=== PATIENT | male | born 1995 | race American Indian/Alaskan Native ===

== ENCOUNTER 2019-06-21 20:20 | Emergency (ER) | payer SELFPAY ==
--- NOTE | 2019-06-21 20:32 | Event Note ---
ED Screening Note Date of service: 06/21/19 Time: 20:29 ED Screening Note: 23 y o male presents with upper lip edema unsure of contact took 2 benadryl earlier this am but no relief This initial assessment/diagnostic orders/clinical plan/treatment(s) is/are subject to change based on patients health status, clinical progression and re- assessment by fellow clinical providers in the ED. Further treatment and workup at subsequent clinical providers discretion. Patient/guardian urged not to elope from the ED as their condition may be serious if not clinically assessed and managed. Initial orders include: allergic vs. abscess/cellulitis
[2019-06-21 22:02] LABS: Basophils % (Auto) 0.6 % (0.0-1.8); Eosinophils % (Auto) 0.9 % (0.0-4.3); Hematocrit 43.5 % (35.5-45.6); Hemoglobin 13.9 gm/dl (11.8-15.2); Lymphocytes % (Auto) 39.7 % (13.4-35.0); Mean Corpuscular HGB Conc 32 % (32-34); Mean Corpuscular Volume 73 fl (84-94); Monocytes # (Auto) 0.7 K/mm3 (0.0-0.8); Monocytes % (Auto) 13.4 % (0.0-7.3); Platelet Count 225 K/mm3 (140-440); Red Blood Count 5.98 M/mm3 (3.65-5.03); Red Cell Distribution Width 16.4 % (13.2-15.2)
[2019-06-21 22:23] LABS: BUN/Creatinine Ratio 8; Blood Urea Nitrogen 8 mg/dL (9-20); Calcium 9.1 mg/dL (8.4-10.2); Hemolysis Index 13
[2019-06-21] MEDS ORDERED: BACTRIM DS PO ONE (22:27)
--- NOTE | 2019-06-21 22:32 | Emergency Department Report ---
HPI - General Chief Complaint: Allergic Reaction Time Seen by Provider: 06/21/19 20:28 - HPI HPI: 23-year-old [place] male presents to the emergency department with 2 complaints. First, the patient has been having some right upper lip swelling over the past 2 days. At first, patient noticed some type of bump above the lip. He says that he squeezed it and popped it and began having the lip swelling. It improved upon waking. However, the patient went to sleep last night and then woke up this morning and the swelling was worse again. He denies any significant pain to the area. He thought it could've been due to an allergic reaction so he took 50 mg of Benadryl without any relief. He denies any swelling of the tongue, swelling of the throat, difficulty swallowing, hives. He has no known allergies to any food, medications, environmental e tiologies. The second complaint is that he has developed some mild shortness of breath and chest tightness. This started today. No recent surgery, immobility or extended travel. He denies any lower show any swelling, fever. He has a past medical history of eye cataracts and a lazy eye. He is a tobacco smoker but denies any illicit drug use. No primary care physician. ED Past Medical Hx - Past Medical History Previous Medical History?: Yes Additional medical history: lazy eye - Surgical History Past Surgical History?: Yes Additional Surgical History: eye surgery - Social History Smoking Status: Current Every Day Smoker Substance Use Type: Alcohol - Medications Home Medications: Home Medications Medication Instructions Recorded Confirmed Last Taken Type Sulfamethoxazole/Trimethoprim 1 each PO BID #14 tablet 06/21/19 Unknown Rx [Bactrim DS TAB] ED Review of Systems ROS: Stated complaint: CHEST PAIN RT SIDE, POSS ALLERGIC REACTION Other details as noted in HPI Comment: All other systems reviewed and negative Constitutional: denies: chills, fever Eyes: denies: eye pain, vision change ENT: other (right upper lip swelling). denies: ear pain, throat pain Respiratory: shortness of breath. denies: cough Cardiovascular: chest pain. denies: palpitations, edema Gastrointestinal: denies: abdominal pain, vomiting Genitourinary: denies: dysuria, discharge Musculoskeletal: denies: back pain, arthralgia Skin: lesions. denies: pruritus Neurological: denies: headache, weakness Physical Exam - Physical Exam Vital Signs: Vital Signs 06/21/19 06/21/19 20:29 21:29 Temperature 98.6 F 98.2 F Pulse Rate 89 81 Respiratory 16 13 Rate Blood Pressure 138/86 Blood Pressure 127/82 [Left] O2 Sat by Pulse 99 96 Oximetry Physical Exam: GENERAL: The patient is well-developed well-nourished. HENT: Normocephalic. Atraumatic. Patient has moist mucous membranes. Oropharynx is clear. No drooling or trismus. There is swelling to the right upper lip. EYES: Extraocular motions are intact. NECK: Supple. Trachea is midline. CHEST/LUNGS: Clear to auscultation. There is no respiratory distress noted. HEART/CARDIOVASCULAR: Regular. There is no tachycardia. There is no murmur. ABDOMEN: Abdomen is soft, nontender. Patient has normal bowel sounds. There is no abdominal distention. SKIN: Skin is warm and dry. NEURO: The patient is awake, alert, and oriented. The patient is cooperative. The patient has no focal neurologic deficits. Normal speech. MUSCULOSKELETAL: There is no tenderness or deformity. There is no limitation range of motion. There is no evidence of acute injury. ED Course Vital Signs 06/21/19 06/21/19 20:29 21:29 Temperature 98.6 F 98.2 F Pulse Rate 89 81 Respiratory 16 13 Rate Blood Pressure 138/86 Blood Pressure 127/82 [Left] O2 Sat by Pulse 99 96 Oximetry ED Medical Decision Making - Lab Data Result diagrams: 06/21/19 21:52 06/21/19 21:52 - EKG Data -: EKG Interpreted by Ut EKG shows normal: sinus rhythm, axis, intervals, QRS complexes, ST-T waves (early repolarization) Rate: normal - EKG Data When compared to previous EKG there are: previous EKG unavailable Interpretation: normal EKG - Radiology Data Radiology results: image reviewed interpreted by me: Chest x-ray does not show any acute process. There are no pleural effusions, obvious pneumonia and there is no pneumothorax. - Medical Decision Making Patient presents to the emergency department with the complaint of swelling to the right upper lip that has been going on for the past 2 days. He does have a papule or pustule just above the right lip near the philtrum. The lip swelling appears more consistent with superficial skin infection such as a pustule or developing abscess, and appears less consistent with angioedema in this particular patient. He already tried some Benadryl without much change. He has no other signs of any allergic reaction. There is no swelling of the tongue, swelling of throat, difficulty with swallowing. There is no urticarial lesions. Patient was given a dose of Bactrim and will be given a prescription for the same. The lip swelling appears to be the patient's main reason for coming to the emergency department. However on the chart, and per triage, there was some mention of chest tightness and shortness of breath. I had to remind the patient of this however. A chest x-ray was done that does not show any pleural effusions, pneumonia, pneumothorax, focal consolidation, or any other acute process. EKG does not show any signs of ST elevation [place] or dysrhythmia. Labs were unremarkable including a negative troponin. Patient appears safe for discharge home. He understands to return to the emergency department with any worsening of the lip swelling, development of fever, swelling of the tongue or throat, any signs of angioedema or anaphylaxis, or any worsening of his chest pain or shortness of breath, or with any acute distress. He has a primary care physician for follow-up. He understands and agrees the plan. Vital signs stable throughout his ED course. - Differential Diagnosis angioedema, dermatitis, cellulitis Critical Care Time: No Critical care attestation.: If time is entered above; I have spent that time in minutes in the direct care of this critically ill patient, excluding procedure time. ED Disposition Clinical Impression: Swollen upper lip, Lip lesion Disposition: - TO HOME OR SELFCARE Is pt being admited?: No Condition: Stable Instructions: Noncardiac Chest Pain (ED) Additional Instructions: Please follow-up with your primary care physician in the next few days. Take the antibiotics as prescribed. Return to the emergency Department with any worsening of the lip swelling, return of your chest pain or shortness of breath, or any acute distress. Prescriptions: Sulfamethoxazole/Trimethoprim [Bactrim DS TAB] 1 each PO BID #14 tablet Referrals: PRIMARY CARE, [Primary Care Provider] - 2-3 Days Time of Disposition: 23:48
--- NOTE | 2019-06-21 23:01 | XRay Report ---
CHEST 2 VIEWS 11/15/2007 INDICATION / CLINICAL INFORMATION: Shortness of breath for 6 hours. COMPARISON: None available. FINDINGS: SUPPORT DEVICES: None. HEART / MEDIASTINUM: No significant abnormality. LUNGS / PLEURA: No significant pulmonary or pleural abnormality. No pneumothorax. ADDITIONAL FINDINGS: No significant additional findings. IMPRESSION: No significant acute abnormality Signer Name: Juan Lauren MD Signed: 06/21/2019 10:57 PM Workstation Name: [id number]
[2019-06-22 00:37] VITALS: BP 145/88
== END 2019-06-22 00:04 | disposition home or self-care (01) ==
LOC: ED 20:20
DX: K13.0 Diseases of lips (principal); Z98.890 Other specified postprocedural states; F17.200 Nicotine dependence, unspecified, uncomplicated; Z79.899 Other long term (current) drug therapy; Z91.018 Allergy to other foods
CPT/HCPCS: 36415; 71046; 80048; 84484; 85025; 93005; 93010; 99284